=== PATIENT | female | born 1955 | race Caucasian/White ===

== ENCOUNTER 2018-08-08 22:58 | Emergency (ER) | payer BC ==
[~2018-08-08] VITALS: Ht 157.5 cm; Wt 81.6 kg
[2018-08-08 23:00] VITALS: BP_SYST 143
[2018-08-09] MEDS ORDERED: ONDANSETRON 4 MG ODT TAB PO ONE (00:15)
[2018-08-09] MEDS ORDERED: MECLIZINE HCL 25 MG TABLET (ANITVERT) PO ONE (00:15)
[2018-08-09 01:41] LABS: BILIRUBIN,URINE NEGATIVE (NEGATIVE); BLOOD, URINE NEGATIVE (NEGATIVE); CLARITY/URINE CLEAR (CLEAR); COLOR,URINE YELLOW (YELLOW); GLUCOSE,URINE 3+ (NEGATIVE); KETONES,URINE 1+ (NEGATIVE); LEUKOCYTE ESTERASE ,URINE NEGATIVE (NEGATIVE); NITRITE, URINE NEGATIVE (NEGATIVE); PH,URINE 6.5 (5.0-8.0); PROTEIN URINE NEGATIVE (NEGATIVE); UROBILINOGEN,URINE 0.2 (0.2-1.0)
[2018-08-09 02:01] VITALS: BP_SYST 143
== END 2018-08-09 02:01 | disposition home or self-care (01) ==
LOC: SED 22:58
DX: R42 Dizziness and giddiness (principal); E10.9 Type 1 diabetes mellitus without complications; I10 Essential (primary) hypertension; J45.909 Unspecified asthma, uncomplicated; E78.00 Pure hypercholesterolemia, unspecified; Z88.8 Allergy status to other drugs, medicaments and biological substances
CPT/HCPCS: 81003; 99283; J8597; Q0162

== ENCOUNTER 2022-08-24 14:48 | Outpatient (CLI) | payer BC | END 2022-08-24 18:00 | disposition home or self-care (01) | LOC: SLB 14:48 | PROVIDERS: ATTEND Specialist | DX: Z12.31 Encounter for screening mammogram for malignant neoplasm of breast (principal); N64.89 Other specified disorders of breast | CPT/HCPCS: 77067 ==

== ENCOUNTER 2022-11-22 10:26 | Outpatient (CLI) | payer BC | END 2022-11-22 18:33 | disposition home or self-care (01) | LOC: SMA 10:26 | PROVIDERS: ATTEND Specialist | DX: N60.01 Solitary cyst of right breast (principal); R92.1 Mammographic calcification found on diagnostic imaging of breast; R92.8 Other abnormal and inconclusive findings on diagnostic imaging of breast | CPT/HCPCS: 76642; 77065 ==